=== PATIENT | female | born 1970 | race Caucasian/White ===

== ENCOUNTER 2022-01-21 13:06 | Emergency (ER) | payer OTHER, SELFPAY ==
[2022-01-21 13:20] VITALS: BP 146/77; PULSE 82; RESP 18; O2SAT 98; BMI 26.5
--- NOTE | 2022-01-21 15:06 | DI.RAD.S_ITS ---
PROCEDURE: XR FOOT LT MIN 3V INDICATIONS: left foot pain TECHNIQUE: 4 views of the foot were acquired. COMPARISON: None. FINDINGS: Bones: No fractures or dislocations. No suspicious bony lesions. Soft tissues: No tibiotalar joint effusion. Achilles tendon appears normal. IMPRESSION: Normal left foot Dictated by: Neo Hernández M.D. on 01/21/2022 at 14:59 Approved by: Neo Hernández M.D. on 01/21/2022 at 15:03
--- NOTE | 2022-01-21 15:06 | ED.BACK ---
HPI - Back Pain/Injury <ANTONY Hernandez - Last Filed: 01/21/22 16:33> General Chief Complaint: Back Pain/Injury Stated Complaint: left foot and middle backpain Time Seen by Provider: 01/21/22 13:08 Source: patient History of Present Illness HPI Narrative: 51-year-old female presents to the emergency department with complaints of left foot pain after twisting her foot approximately 2 weeks ago. She reports persistent swelling in her foot and that with certain movements, she will get a shooting pain up her left leg. Patient also reports chronic back issues that are usually resolved through ambulatory care nurse. Patient denies any trauma to site or signs of saddle anesthesia, numbness and tingling or weakness. Related Data Home Medications Medication Instructions Recorded Confirmed dextroamphetamine-amphetamine PO 06/10/20 06/10/20 [Adderall] valacyclovir PO 06/10/20 06/10/20 Previous Rx's Medication Instructions Recorded diclofenac sodium 3 % topical gel 1 applic topical BID PRN back pain 01/21/22 #100 grams methocarbamol 500 mg tablet 500 mg PO TID PRN back pain #14 01/21/22 tabs Allergies Allergy/AdvReac Type Severity Reaction Status Date / Time acetaminophen [From Vicodin] Allergy swelling Verified 06/10/20 15:09 of throat, nausea bee pollen Allergy anaphylaxis Verified 06/10/20 15:09 hydrocodone [From Vicodin] Allergy swelling Verified 06/10/20 15:09 of throat, nausea thiethylperazine Allergy Verified 01/21/22 13:29 [From Torecan] Sulfa (Sulfonamide AdvReac rash, Verified 06/10/20 15:09 Antibiotics) itching tetracycline AdvReac rash Verified 06/10/20 15:09 Review of Systems <ANTONY Hernandez - Last Filed: 01/21/22 16:33> Review of Systems Narrative: Narrative: GENERAL: Denies chills, fatigue, fever, sweats. HEENT: Denies sinus pain, ear pain, sore throat, difficulty swallowing, dizziness. RESPIRATORY: Denies dyspnea, cough, wheezing, sputum. CARDIOVASCULAR: Denies chest pain, palpitations, edema. GASTROINTESTINAL: Denies nausea, vomiting, abdominal pain, diarrhea, constipation. : Denies dysuria, frequency, incontinence, hematuria, urinary retention, flank pain. MUSCULOSKELETAL: denies weakness, joint pain, or bony pain. SKIN: Denies rash, skin lesions, or pruritis. NEUROLOGIC: Denies weakness, dizziness, headache, numbness. PSYCHIATRIC: No concerning psychosocial issues. Patient History <ANTONY Hernandez - Last Filed: 01/21/22 16:33> Medical History Diarrhea Social History Smoking Status: Never smoker Smoking Status: Never smoker Substance Use Type: does not use Exam <ANTONY Hernandez - Last Filed: 01/21/22 16:33> Narrative Exam Narrative: Narrative Exam Narrative: GENERAL: This is a well-nourished, well-developed patient, in no acute distress HEAD: Atraumatic. Normocephalic. EYES: No injection or drainage. ENT: Nose without bleeding, purulent drainage. Airway patent. NECK: Trachea midline. No JVD or lymphadenopathy. Supple and nontender. CARDIOVASCULAR: Regular rate and rhythm, peripheral pulses intact, cap refill <2 sec. RESPIRATORY: Breath sounds equal and clear bilaterally. No wheezes, rales, or rhonchi. No cough. No increased respiratory effort. No accessory muscle use. GASTROINTESTINAL: Abdomen soft, non-tender, nondistended without guarding or rebound. No suprapubic pain. No hepato-splenomegaly, or palpable masses. EXTREMITIES: Normal range of motion, no clubbing or edema. Neurovascularly intact. NEURO: A&O x 3. SKIN: Warm, dry, no rashes or lesions noted. 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 There is no asymmetry, swelling, bruising or wound. There is no paraspinal tenderness or CVA tenderness. SI joints nontender. No pain over spinous processes. No symptoms of cauda equina such as saddle anesthesia. Sensation is grossly intact. ROM is limited due to pain. SLE is negative bilaterally. Reflexes 2-3 at patella and achilles bilaterally. Resistive strengths are within normal limits Gait is normal. Heel toe balance is intact. Extrem Other: FOOT: There is mild swelling but no bruising or asymmetry. There is no tenderness to general palpation. Sensation grossly intact. There is tenderness over the mid-foot. The ankle flexion and extension is intact. Toes range of motion intact. The contralateral foot exam is unremarkable. <DO Chaim Hopson Last Filed: 01/21/22 18:00> Initial Vital Signs Initial Vital Signs: Vital Signs Pulse Rate 82 01/21/22 13:20 Respiratory Rate 18 01/21/22 13:20 Blood Pressure 146/77 H 01/21/22 13:20 Pulse Oximetry 98 01/21/22 13:20 Oxygen Delivery Method 01/21/22 13:20 Course <ANTONY Hernandez - Last Filed: 01/21/22 16:33> Orders Ordered: ED Orders 01/21/22 15:06 XR foot LT min 3V Stat Vital Signs Vital signs: Vital Signs - 8 hr 01/21/22 13:20 01/21/22 15:18 01/21/22 15:20 Temperature 97 F L 97 F L Pulse Rate 82 Respiratory Rate 18 Blood Pressure 146/77 H Pulse Oximetry 98 Oxygen Delivery Method Room Air <DO Chaim Hopson Last Filed: 01/21/22 18:00> Orders Ordered: ED Orders 01/21/22 15:06 XR foot LT min 3V Stat Vital Signs Vital signs: Vital Signs - 8 hr 01/21/22 13:20 01/21/22 15:18 01/21/22 15:20 Temperature 97 F L 97 F L Pulse Rate 82 Respiratory Rate 18 Blood Pressure 146/77 H Pulse Oximetry 98 Oxygen Delivery Method Room Air MDM - Back Pain/Injury <ANTONY Hernandez - Last Filed: 01/21/22 16:33> Differential Diagnosis Differential diagnosis: Likely strain of lumbar region, thoracic back pain and other (Left foot pain); Unlikely sciatica Imaging Data Extremity x-ray #1: Radiologist's Impression: Signed Patient: Annabelle Haywood MR#: [id number] : 1970 Acct:[id number] Age/Sex: 51 / F Date of Service: 01/21/22 Loc: ED Accession Number: [id number] ?? Procedure: XR foot LT min 3V Ordering Provider: Toni Mosquera PROCEDURE:? XR FOOT LT MIN 3V ? INDICATIONS:? left foot pain ? TECHNIQUE:? 4 views of the foot were acquired.? ? COMPARISON:? None. ? FINDINGS:? ? Bones:? No fractures or dislocations.? No suspicious bony lesions.? ? Soft tissues:? No tibiotalar joint effusion.? Achilles tendon appears normal.? ? ? IMPRESSION:? Normal left foot ? ? Dictated by: Neo Hernández M.D. on 01/21/2022 at 14:59 ? ? Approved by: Neo Hernández M.D. on 01/21/2022 at 15:03 ? MDM Narrative Medical decision making narrative: 51-year-old female with chronic back pain and left foot pain. X-ray of left foot was normal. No signs of cauda equina syndrome such as saddle anesthesia. Range of motion is limited. Recommend rest, ice, compression and elevation for her ankle and foot. Recommended Patient see her chiropractor as this has worked well for her in the past. We will treat with Robaxin, diclofenac gel and [id number] icy hot, Salon pas or lidocaine patches as needed. Discussed return precautions. Discussed plan of care with patient, who is agreeable with course of action. Discharge Plan Departure Patient Disposition: Home Clinical Impression: Acute back pain Instructions: DI for Back Spasm, DI for Back Strain or Sprain Activity Restrictions/Additional Instructions: *You have been diagnosed with a back strain and left foot pain. Your foot x-ray was normal and I recommend you use Rest (modified activity), along with ice, compression wrap/splint-immobilize as directed and elevation above heart. Tylenol or Ibuprofen for discomfort. I believe the most important thing for your back pain is an appointment with your chiropractor. In the time being, I will prescribe a nonsedating muscle relaxer called Robaxin along with a anti-inflammatory gel called diclofenac gel. You may also try lidocaine patches, Salon pas or icy Hot that is available at your local pharmacy. *What to do: *Please continue to take your regular medications as directed. [x ] New medication prescriptions sent to your pharmacy: [[facility] in [place]] [ ] New medication written as a paper prescription [ ] No new medications given *Please follow up with your chiropractor jez and your primary care provider in 2-3 days. Let them know you were seen in the Emergency Department and that we ask that you be seen in follow up. We will electronically transmit a record of today's note if your PCP is in our system *If you do not have a primary care provider please contact the [facility] Resource line at [phone]. They will ask some questions about your medical history and help get you set up with a doctor in the community. ? Return to ER if you should have any new, worsening or concerning symptoms, such as worsening pain, loss of control of bowel or bladder, severe headache, confusion, chest pain, difficulty breathing, fever greater than 101 F, shaking chills, persistent vomiting to the point that you cannot drink fluids, or other new or worsening symptoms. Prescriptions: New methocarbamol 500 mg tablet 500 mg PO TID PRN (Reason: back pain) Qty: 14 0RF diclofenac sodium 3 % gel 1 applic topical BID PRN (Reason: back pain) Qty: 100 0RF No Action valacyclovir PO dextroamphetamine-amphetamine PO Referrals: Miscellaneous,Doctor, [Primary Care Provider] - Visit Report Forms: Patient Portal/API <Toni Cook, - Last Filed: 01/21/22 18:00> [facility] Dr Cook Co-Sign Statement: I was available for consultation during this patient's emergency department visit. This chart is signed by myself for administrative purposes only. I did not have direct contact with this patient during this visit. They were seen independently by the APC.
[2022-01-21 15:18] VITALS: TEMP 36.1
[2022-01-21 15:20] VITALS: TEMP 36.1
== END 2022-01-21 15:55 | disposition home or self-care (01) ==
PROVIDERS: Emergency Provider Registered Nurse
DX: M79.672 Pain in left foot (principal); M54.9 Dorsalgia, unspecified; X50.1XXA Overexertion from prolonged static or awkward postures, initial encounter
CPT/HCPCS: 73630; 99283

== ENCOUNTER 2022-04-02 13:12 | Emergency (ER) | payer OTHER, SELFPAY ==
[2022-04-02 13:52] VITALS: BP 130/71; PULSE 74; RESP 18; TEMP 36.3; O2SAT 98; BMI 26.5
--- NOTE | 2022-04-02 13:57 | DI.RAD.S_ITS ---
PROCEDURE: XR FINGER LT MIN 2V INDICATIONS: Joint pain TECHNIQUE: AP hand, 2 views of the 5th finger(s) acquired. COMPARISON: None. FINDINGS: Bones: No fractures or dislocations. No suspicious bony lesions. Soft tissues: No suspicious soft tissue calcifications. IMPRESSION: No acute fracture. No osseous lesion. If symptoms and/or clinical suspicion for pathology persist, further assessment with repeat, or advanced imaging (e.g., CT, MRI, or bone scan) may be helpful for further assessment. Dictated by: Sheldon Long M.D. on 04/02/2022 at 14:47 Approved by: Sheldon Long M.D. on 04/02/2022 at 14:47
== END 2022-04-02 16:26 | disposition left against medical advice (07) ==
PROVIDERS: Emergency Provider Emergency Medicine
DX: M79.645 Pain in left finger(s) (principal)
CPT/HCPCS: 73140; 99283